=== PATIENT | male | born 1950 | race Two or more races ===

== ENCOUNTER 2022-12-20 09:45 | Outpatient (CLI) | payer OTHER | END 2022-12-20 09:48 | disposition home or self-care (01) | LOC: RAD 09:45 | PROVIDERS: ATTEND Orthopaedic Surgery | DX: M25.561 Pain in right knee (principal); M25.562 Pain in left knee ==

== ENCOUNTER 2022-12-21 08:07 | Outpatient (CLI) | payer OTHER | END 2022-12-21 08:15 | disposition home or self-care (01) | LOC: MRI 08:07 | PROVIDERS: ATTEND Orthopaedic Surgery | DX: S83.201A Bucket-handle tear of unspecified meniscus, current injury, left knee, initial encounter (principal) | CPT/HCPCS: 73718 ==

== ENCOUNTER 2023-01-04 13:54 | Outpatient (CLI) | payer OTHER | END 2023-01-04 14:00 | disposition home or self-care (01) | LOC: RAD 13:54 | PROVIDERS: ATTEND Orthopaedic Surgery | DX: R07.9 Chest pain, unspecified (principal) ==